=== PATIENT | female | born 1940 | race Caucasian/White ===

== ENCOUNTER → 2016-11-06 | Outpatient (CLI) | payer MEDICARE ==
--- NOTE | ~2016-11-06 | CT57 ---
[facility] A Service [facility] RADIOLOGY TEXT RESULTS PATIENT: FELICITAS ALONSO I LOCATION: [facility] : 36 UNIT #: [id number] AGE: [address]: Medhat Taylor MD SEX: F ORDER DR: [id number] [place] [id number] O MR#: [id number] #: [id number] NAME: FELICITAS ALONSO : 1940 SEX: F STUDY DATE/TIME: 11/06/2016 10:04 UNIT: [facility] ROOM: STUDY DESCRIPTION: CT Chest Wo Cont Attending Physician: Medhat Taylor M.D. Referring Physician: Medhat Taylor M.D. Ordering Physician: Medhat Taylor M.D. Primary Care Physician: Phu Moe M.D. MEDICAL IMAGING REPORT This report is preliminary unless electronic signature is present. EXAM CT chest without contrast INDICATIONS Lung cancer. There is a right upper lobe pulmonary malignancy. Status post right upper lobectomy. Restaging. Observation for metastatic disease. TECHNIQUE CT of the chest without contrast. Coronal and sagittal reconstructions were obtained. COMPARISON CT chest dated 06/05/2016 and 01/24/2016. FINDINGS The patient status post right upper lobectomy. No residual or recurrent mass is identified. There is moderate emphysema. Central airways are patent. No pathologically enlarged mediastinal or hilar lymph nodes. No pericardial or pleural effusion. Thoracic aorta is normal in caliber. There are benign cysts in the liver. Adrenal glands are normal in appearance. IMPRESSION No evidence of recurrent or metastatic disease in a patient status post right upper lobectomy. Dictated by... Craig Montiel M.D. [facility] A Service [facility] RADIOLOGY TEXT RESULTS PATIENT: FELICITAS ALONSO I LOCATION: [facility] : 36 UNIT #: [id number] AGE: [address]: Medhat Taylor MD SEX: F ORDER DR: THIS IS AN ELECTRONICALLY VERIFIED REPORT Craig Montiel M.D. at 11/06/2016 1:12 PM [email or web address]/[email or web address] TD: 11/06/2016 13:00 JOB #: [id number] MEDICAL IMAGING REPORT Page 1 of 1
== END | disposition home or self-care (01) ==
LOC: SCT 09:16
DX: C34.90 Malignant neoplasm of unspecified part of unspecified bronchus or lung (principal); Z90.2 Acquired absence of lung [part of]
CPT/HCPCS: 71250